=== PATIENT | female | born 1945 | race Asian ===

== ENCOUNTER 2023-07-05 22:17 | Emergency (ER) | payer MEDICAID ==
[~2023-07-05] VITALS: Ht 142.2 cm; Wt 49.0 kg
[2023-07-05 22:24] VITALS: BP_SYST 182; PULSE 72; RESP 20; TEMP 98; O2SAT 98
[2023-07-05] MEDS ORDERED: ACET-2634 PO (23:52)
[2023-07-05] MEDS ORDERED: DICL100G60 TP (23:52)
[2023-07-06] MEDS: ACETAMINOPHEN 325 MG TABLET PO ONE (00:17)
[2023-07-06 00:18] VITALS: BP_SYST 182; PULSE 72; RESP 20; TEMP 98; O2SAT 98
== END 2023-07-05 23:58 | disposition home or self-care (01) ==
LOC: SED 22:17
DX: S43.401A Unspecified sprain of right shoulder joint, initial encounter (principal); I10 Essential (primary) hypertension; W01.0XXA Fall on same level from slipping, tripping and stumbling without subsequent striking against object, initial encounter; Y93.89 Activity, other specified; Y92.89 Other specified places as the place of occurrence of the external cause; Y99.8 Other external cause status
CPT/HCPCS: 73030; 93005; 99283